=== PATIENT | female | born 1965 | race Caucasian/White ===

== ENCOUNTER → 2023-11-15 15:49 | Outpatient (REF) | payer OTHER, SELFPAY | LOC: PAVMRI 15:49 | PROVIDERS: ATTENDING PHYSICIAN Family Medicine | DX: M54.12 Radiculopathy, cervical region (principal); M50.90 Cervical disc disorder, unspecified, unspecified cervical region; Z98.890 Other specified postprocedural states; Z98.1 Arthrodesis status | CPT/HCPCS: 72141 ==

== ENCOUNTER → 2024-04-18 08:51 | Outpatient (REF) | payer OTHER, SELFPAY | LOC: RAD 08:51 | PROVIDERS: ATTENDING PHYSICIAN Family Medicine | DX: N80.9 Endometriosis, unspecified (principal); N94.10 Unspecified dyspareunia | CPT/HCPCS: 76830; 76856 ==

== ENCOUNTER → 2024-12-26 13:25 | Outpatient (REF) | payer OTHER, SELFPAY | LOC: RAD 13:25 | PROVIDERS: ATTENDING PHYSICIAN Nurse Practitioner Family | DX: J06.9 Acute upper respiratory infection, unspecified (principal) | CPT/HCPCS: 71046 ==